=== PATIENT | female | born 1945 | race Caucasian/White ===

== ENCOUNTER 2016-10-16 14:21 | Outpatient (CLI) | payer MEDICARE, OTHER ==
[2014-02-02 18:41] VITALS: BP 134/69
== END 2016-10-16 14:22 ==
LOC: CARD 14:21
PROVIDERS: ATTEND Internal Medicine Cardiovascular Disease
DX: I25.10 Atherosclerotic heart disease of native coronary artery without angina pectoris (principal)
CPT/HCPCS: G0463

== ENCOUNTER 2018-03-14 09:59 | Outpatient (CLI) | payer MEDICARE, OTHER ==
[2014-02-02 18:41] VITALS: BP 134/69
--- NOTE | 2018-03-14 18:45 | Diagnostic Imaging Report ---
YAHIR MOROCHO (YANDEL) - OP [facility] [address] [facility].[address] [id number] Report Submission Date: Mar 14, 2018 11:50:38 AM CDT Patient Study Name: MARCEL DUPONT Date: Mar 14, 2018 10:16:31 AM CDT Modality Type: DX Gender: F Description: ABDOMEN : 41 Institution: [facility] Physician: YAHIR MOROCHO (YANDEL) - OP KUB History: Right lower quadrant pain Two supine views of the abdomen were obtained which demonstrate clips from a cholecystectomy. Vascular calcifications are present at the left upper quadrant. Calcified granulomata are present at the lung bases. The bowel gas pattern is nonobstructive. Impression: Nonobstructive bowel gas pattern. Electronically signed on Mar 14, 2018 11:50:38 AM CDT by: Beatriz PHILIP
== END 2018-03-14 10:00 ==
LOC: RAD 09:59
PROVIDERS: ATTEND Nurse Practitioner Family
DX: R10.9 Unspecified abdominal pain (principal); R19.7 Diarrhea, unspecified
CPT/HCPCS: 74018

== ENCOUNTER 2018-05-05 11:26 | Emergency (ER) | payer MEDICARE, OTHER ==
[2018-05-05 11:50] VITALS: BP 137/78
--- NOTE | 2018-05-05 11:53 | ED Physician Documentation ---
Lower Extremity Injury - HISTORIAN Historian: patient - HPI Stated Complaint: Right foot pain Chief Complaint: Foot Injury Additional Information: Rolled right foot on 05/01, when she stepped on and slid off a rock in a gravel driveway. Wrapped the foot and has been applying ice. Has taken tylenol 4x since injury. Walking on foot with pain and the use of a cane. Famil insisted she have foot examined. On Plavix 2/2 cardiac stent. - ROS CONST: no problems - PAST HX Past History: cardiac (one stent. ), other (cholecystectomy) Allergies/Adverse Reactions: Allergies Allergy/AdvReac Type Severity Reaction Status Date / Time cephalexin [From Keflex] Allergy Nausea/Vomi Verified 05/05/18 11:52 ting sulfamethoxazole Allergy Nausea/Vomi Verified 05/05/18 11:52 [From Bactrim] ting trimethoprim [From Bactrim] Allergy Nausea/Vomi Verified 05/05/18 11:52 ting Home Medications: Ambulatory Orders Medication Instructions Recorded Losartan/Hydrochlorothiazide 1 each PO DAILY 02/01/14 [Hyzaar 100-25 Tablet] amLODIPine BESYLATE [Norvasc] 10 mg PO 0900 02/01/14 inFLIXimab [Remicade] 100 mg IV DIRECTED 02/01/14 Aspirin [Blaise] 81 mg PO DAILY #100 tab.chew 02/02/14 Nitroglycerin 0.4 mg SL Q5MIN PRN #25 tab.subl 02/02/14 Atorvastatin Calcium 80 mg PO HS 05/05/18 Gabapentin [Neurontin] 600 mg PO TID 05/05/18 Venlafaxine HCl [Effexor] 75 mg PO BID 05/05/18 - SOCIAL HX Smoking History: non-smoker - FAMILY HX Family History: no significant history - VITAL SIGNS Vital Signs: Vital Signs Temp Pulse Resp BP Pulse Ox 98.0 F 86 16 137/78 95 05/05/18 11:44 05/05/18 11:44 05/05/18 11:44 05/05/18 11:44 05/05/18 11:44 - REVIEWED ASSESSMENTS Nursing Assessment Reviewed: Yes Vitals Reviewed: Yes Progress - Progress Progress: Report Submission Date: May 05, 2018 11:58:07 AM HASH SLINGER Patient Study Name: MARCEL DUPONT Date: May 05, 2018 11:35:41 AM HASH SLINGER Modality Type: DX Gender: F Description: LOWER EXTREMITY : 41 Institution: [facility] Physician: ANTHONY FAJARDO - ER Right foot History: Status post fall with lateral foot pain Three views of the right foot demonstrate the presence of an acute, complete avulsion fracture at the base of the 5th metatarsal bone. The avulsed fragment measures 5 mm. The fragment is displaced from the parent bone by approximately 3 mm. Mineralization is normal. There is a small plantar calcaneal spur. Impression: Acute avulsion fracture at the base of the 5th metatarsal bone as described. Electronically signed on May 05, 2018 11:58:07 AM HASH SLINGER by: Beatriz Duron ED Results Lab/Radiology - Orders Orders: ED Orders Category Date Time Status Christiano Wrap Affected Extremity 1T Care 05/05/18 12:01 Active Post Op Shoe 1T Care 05/05/18 12:01 Active FOOT 3 VIEWS OR MORE [RAD] Stat Exams 05/05/18 Taken Lower Extremities Injury Phy - Physical Exam General Appearance: alert, mild distress Hips: bilateral hip: no evidence of injury Legs: bilateral: no evidence of injury Knees: bilateral: no evidence of injury Ankle: bilateral: normal inspection, no evidence of injury Foot: right foot: normal range of motion (toes), ecchymosis (diffuse forefoot and mid sole), swelling (diffuse) Gait: antalgic gait Neuro/Vascular/Tendon: no vascular compromise, motor nml, sensation nml Head/ENT: nml inspection Neck/Back: nml inspection Resp/CVS: no resp. distress Discharge Clincal Impression: Fracture of right foot Qualifiers: Encounter type: initial encounter Fracture type: closed Qualified Code(s): S92.901A - Unspecified fracture of right foot, initial encounter for closed fracture Referrals: Jenna Santiago FNP [Primary Care Provider] - 2 Days Condition: Good Disposition: 01 HOME, SELF-CARE Decision to Admit: NO Decision Time: 12:07
--- NOTE | 2018-05-05 12:25 | Diagnostic Imaging Report ---
ANTHONY FAJARDO [facility] [address] [facility] [address] [address] Report Submission Date: May 05, 2018 11:58:07 AM BUILDER BEAM Patient Study Name: MARCEL DUPONT Date: May 05, 2018 11:35:41 AM BUILDER BEAM Modality Type: DX Gender: F Description: LOWER EXTREMITY : 41 Institution: [facility] Physician: ANTHONY FAJARDO Right foot History: Status post fall with lateral foot pain Three views of the right foot demonstrate the presence of an acute, complete avulsion fracture at the base of the 5th metatarsal bone. The avulsed fragment measures 5 mm. The fragment is displaced from the parent bone by approximately 3 mm. Mineralization is normal. There is a small plantar calcaneal spur. Impression: Acute avulsion fracture at the base of the 5th metatarsal bone as described. Electronically signed on May 05, 2018 11:58:07 AM TREY by: Beatriz PHILIP
== END 2018-05-05 12:17 | disposition home or self-care (01) ==
LOC: ED 11:26
DX: S92.354A Nondisplaced fracture of fifth metatarsal bone, right foot, initial encounter for closed fracture (principal); W18.31XA Fall on same level due to stepping on an object, initial encounter; Y92.014 Private driveway to single-family (private) house as the place of occurrence of the external cause
CPT/HCPCS: 73630; 99283